=== PATIENT | male | born 1990 | race Caucasian/White ===

== ENCOUNTER 2017-10-16 17:49 | Emergency (ER) | payer SELFPAY | END 2017-10-16 19:03 | disposition home or self-care (01) | LOC: D.ER 17:49 | DX: S89.91XA Unspecified injury of right lower leg, initial encounter (principal); V43.52XA Car driver injured in collision with other type car in traffic accident, initial encounter; Y93.89 Activity, other specified; Y92.410 Unspecified street and highway as the place of occurrence of the external cause; F17.200 Nicotine dependence, unspecified, uncomplicated ==